=== PATIENT | female | born 2000 | race Caucasian/White ===

== ENCOUNTER 2019-06-08 19:28 | Emergency (ER) | payer OTHER ==
[~2019-06-08] VITALS: Ht 162.6 cm; Wt 66.5 kg
[~2019-06-08 19:28] MED LIST: LORA-441 PO
[2019-06-08 20:14] VITALS: BP 141/76; PULSE 66; RESP 19; Ht 162.6 cm; Wt 66.5 kg
== END 2019-06-09 00:22 | disposition home or self-care (01) ==
LOC: FTE 19:28
DX: F44.9 Dissociative and conversion disorder, unspecified (principal)
CPT/HCPCS: 80053; 81001; 81025; 84439; 84443; 85025; 86592; 99283